=== PATIENT | female | born 1965 | race Caucasian/White ===

== ENCOUNTER 2021-05-03 06:18 | Emergency (ER) | payer SELFPAY ==
[2021-05-03 06:29] VITALS: BP 132/64
[2021-05-03 06:41] LABS: BILIRUBIN Negative (Negative); BLOOD Negative (Negative); CLARITY Cloudy (Clear); COLOR Yellow (Yellow); GLUCOSE Negative (Negative); KETONE Negative (Negative); LEUKO ESTERASE 1+ (Negative); NITRITE Negative (Negative)
[2021-05-03 07:07] LABS: BACTERIA 4+; FINE GRANULAR CAST 16-20
[2021-05-03] MEDS ORDERED: MACROBID100 M1 PO (08:49)
== END 2021-05-03 09:16 | disposition home or self-care (01) ==
LOC: ED 06:18
PROVIDERS: Internal Medicine
DX: K52.9 Noninfective gastroenteritis and colitis, unspecified (principal); N39.0 Urinary tract infection, site not specified